=== PATIENT | female | born 1965 | race Hispanic/Latino ===

== ENCOUNTER 2016-09-18 14:40 | Emergency (ER) | payer MEDICAID ==
[2016-09-18 14:40] VITALS: BMI 29.9
[2016-09-18 14:57] VITALS: BP 143/90; PULSE 70; RESP 16; TEMP 98.1; O2SAT 99
[2016-09-18] MEDS ORDERED: Naproxen 500 MG TAB PO ONE ×2 (15:05→15:34)
--- NOTE | 2016-09-18 15:47 | ED PDOC ---
Lower Extremity Pain/Injury Time Seen by Provider: 09/18/16 14:59 Chief Complaint (Nursing): Lower Extremity Problem/Injury Chief Complaint (Provider): Left foot and ankle pain History Per: Patient History/Exam Limitations: no limitations Onset/Duration Of Symptoms: Hrs Current Symptoms Are (Timing): Still Present Additional Complaint(s): Patient is a 51 year old female presenting to the emergency department for left foot and ankle pain that started this morning after waking up. Reports pain is located on the top and bottom of the left foot. Denies numbness, tingling, trauma, and rash. PCP: Dr. Kendell Schwarz. Past Medical History Reviewed: Historical Data, Nursing Documentation, Vital Signs Vital Signs: Last Vital Signs Temp 98.1 F 09/18/16 14:54 Pulse 70 09/18/16 14:54 Resp 16 09/18/16 14:54 BP 143/90 09/18/16 14:54 Pulse Ox 99 09/18/16 14:54 - Medical History PMH: Anxiety, Asthma, Back Problems (chronic), Depression, HTN, Hypercholesterolemia, Hyperlipidemia Denies: Diabetes, Chronic Kidney Disease - Surgical History Surgical History: No Surg Hx - Family History Family History: States: Unknown Family Hx - Social History Current smoker - smoking cessation education provided: No Alcohol: None Drugs: Denies - Immunization History Hx Tetanus Toxoid Vaccination: No Hx Influenza Vaccination: No Hx Pneumococcal Vaccination: No - Home Medications Home Medications: Ambulatory Orders Medication Instructions Recorded ARIPiprazole [Abilify] 15 mg PO DAILY 03/06/16 Alendronate Sodium [Binosto] 1 tab PO DAILY 03/06/16 Ammonium Lactate 12% [Lac-Hydrin 1 applic TOP BID 03/06/16 12% Cream (140 g)] Cholecalciferol [Vitamin D 1000 IU] 1 cap PO DAILY 03/06/16 Clindamycin Phosphate 1 applic TOP BID 03/06/16 Clonazepam [Klonopin] 1 mg PO BID 03/06/16 Clotrimazole/Betamethasone 1 applic TOP BID 03/06/16 [Lotrisone] Cyclobenzaprine [Flexeril] 1 tab PO DAILY 03/06/16 DULoxetine [Cymbalta] 1 cap PO DAILY 03/06/16 Econazole Nitrate 1 applic TOP BID 03/06/16 Ferrous Sulfate [Feosol] 1 tab PO DAILY 03/06/16 Fluticasone Nasal [Flonase] 1 spray INH BID 03/06/16 Fluticasone/Salmeterol 500/50 1 puff INH BID 03/06/16 [Advair Diskus 500/50] Hydrocortisone [Proctosol-Hc] 1 applic TOP Q12 03/06/16 Ibuprofen [Motrin Tab] 1 tab PO Q8 PRN 03/06/16 Ketoconazole 2% Cr [Nizoral] 1 applic TOP BID 03/06/16 Lorcaserin HCl [Belviq] 1 tab PO DAILY 03/06/16 Mometasone Furoate 1 applic TOP BID 03/06/16 Multivitamin with Iron [Tab-A-Nell 1 tab PO DAILY 03/06/16 with Iron] Mupirocin 2% Ointment [Bactroban 1 applic TOP BID 03/06/16 Ointment] Neomycin/Polymyxin B for Irr 1 applic TOP BID 03/06/16 [Neomycin/Polymyxin B] Drums-3 Fatty Acids [Drums-3] 1 cap PO DAILY 03/06/16 Tobramycin/Dexamethasone [Tobradex 1 applic TOP BID 03/06/16 Eye Ointment] Trazodone HCl [Oleptro ER] 300 mg PO HS 03/06/16 Triamcinolone 0.1% [Triamcinolone 1 applic TOP BID 03/06/16 0.1% Cream] Triamterene/Hydrochlorothiazid 1 cap PO DAILY 03/06/16 [Triamterene-Hctz 37.5-25 mg Cp] metroNIDAZOLE 0.75% [Metrogel 1 applic TOP BID 03/06/16 Cream] Meloxicam [Mobic] 7.5 mg PO DAILY PRN #30 tab 09/18/16 - Allergies Allergies/Adverse Reactions: Allergies Allergy/AdvReac Type Severity Reaction Status Date / Time morphine Allergy RASH Verified 09/06/15 03:54 Penicillins Allergy RASH Verified 09/06/15 03:54 Sulfa (Sulfonamide Allergy RASH Verified 09/06/15 03:54 Antibiotics) Review of Systems ROS Statement: Except As Marked, All Systems Reviewed And Found Negative Constitutional: Negative for: Other (Trauma) Musculoskeletal: Positive for: Foot Pain (Left foot and ankle pain) Skin: Negative for: Rash Neurological: Negative for: Numbness, Other (Tingling) Physical Exam - Reviewed Nursing Documentation Reviewed: Yes Vital Signs Reviewed: Yes - Physical Exam Appears: Positive for: Well, Non-toxic, No Acute Distress Head Exam: Positive for: ATRAUMATIC, NORMAL INSPECTION, NORMOCEPHALIC Skin: Positive for: Normal Color, Warm, Dry Pulses-Dorsalis Pedis (L): 2+ Extremity: Positive for: Normal ROM (Active on left foot and ankle), Capillary Refill (less than 2 seconds capillary refill on the left foot). Negative for: Tenderness, Calf Tenderness (Bilateral), Deformity, Swelling, Other (No breaking skin integrity, warmth or erythema of left foot and ankle) Neurologic/Psych: Positive for: Alert, Oriented - ECG O2 Sat by Pulse Oximetry: 99 (RA) Pulse Ox Interpretation: Normal Medical Decision Making Medical Decision Making: Time: 1505 Initial Impression: Left foot and ankle pain Initial Plan: Naproxen 500 mg PO X-Ray Left Ankle X-Ray Left Foot Reevaluation 1540 Upon provider reevaluation patient is medically stable, and requires no further treatment in the ED at this time. Patient will be discharged with Rx for Meloxicam 7.5 mg. Counseling was provided and all questions were answered regarding diagnosis and need for follow up with Dr. Adams Arreola and visit to podiatry clinic. There is agreement to discharge plan. Return if symptoms persist or worsen. Clinical Impression: Heel spur Scribe Attestation: Documented by Swathi Galan, acting as a scribe for Jaya Farmer PA-C. Provider Scribe Attestation: All medical record entries made by the Scribe were at my direction and personally dictated by me. I have reviewed the chart and agree that the record accurately reflects my personal performance of the history, physical exam, medical decision making, and the department course for this patient. I have also personally directed, reviewed, and agree with the discharge instructions and disposition. Disposition - Clinical Impression Clinical Impression: Heel spur - Patient ED Disposition Is Patient to be Admitted: No Counseled Patient/Family Regarding: Studies Performed, Diagnosis, Need For Followup, Rx Given - Disposition Referrals: Podiatry Clinic [Outside] Adams Arreola MD [Staff Provider] - Disposition: Routine/Home Disposition Time: 15:40 Condition: STABLE Additional Instructions: Follow up with pediatric licensed practical nurse for further evaluation of foot pain. Prescriptions: Meloxicam [Mobic] 7.5 mg PO DAILY PRN #30 tab PRN Reason: pain Instructions: Heel Spur (ED) Print Language: ARABIC
--- NOTE | 2016-09-19 15:43 | RAD ---
PROCEDURE: Left Foot Radiographs. HISTORY: pain COMPARISON: None. FINDINGS: BONES: Normal. No fracture. JOINTS: Normal. SOFT TISSUES: Normal. OTHER FINDINGS: None. IMPRESSION: Normal left foot radiographs.
--- NOTE | 2016-09-19 15:51 | RAD ---
PROCEDURE: Left Ankle Radiographs. HISTORY: pain COMPARISON: None FINDINGS: BONES: Normal. No fracture. JOINTS: Normal. No osteoarthritis. Ankle mortise maintained. Talar dome intact SOFT TISSUES: Normal. OTHER FINDINGS: None. IMPRESSION: Normal left ankle radiographs.
== END 2016-09-18 16:05 | disposition home or self-care (01) ==
LOC: H.ER 14:40
DX: M77.30 Calcaneal spur, unspecified foot (principal)

== ENCOUNTER 2018-05-27 18:48 | Emergency (ER) | payer MEDICAID ==
[2018-05-27 18:48] VITALS: BMI 29.9
[2018-05-27 18:54] VITALS: RESP 20; O2SAT 98
[2018-05-27] MEDS ORDERED: Sodium Chloride 0.9% 1,000 ML IV STA (19:10)
--- NOTE | 2018-05-27 19:47 | ED PDOC ---
HPI: General Adult Time Seen by Provider: 05/27/18 18:59 Chief Complaint (Nursing): Chest Pain Chief Complaint (Provider): chest and abdominal pain History Per: Patient History/Exam Limitations: no limitations Onset/Duration Of Symptoms: Days (1) Current Symptoms Are (Timing): Still Present Severity: Moderate Additional Complaint(s): 53yo female c/o left lower chest and upper abdominal pain radiating to the back starting today, constant with exacerbations, denies nausea/vomiting/diarrhea, cough or fever. Denies prior history of similar pain. Prior records reviewed, had normal stress test several years ago per admission notes. Today denies SOB, dizziness, diaphoresis or orthopnea. Past Medical History Reviewed: Historical Data, Nursing Documentation, Vital Signs Vital Signs: Last Vital Signs Temp 97.6 F 05/27/18 18:52 Pulse 88 05/27/18 18:52 Resp 20 05/27/18 18:52 BP 167/80 H 05/27/18 18:52 Pulse Ox 98 05/27/18 18:52 - Medical History PMH: Anxiety, Asthma, Back Problems (chronic), Depression, HTN, Hypercholesterolemia, Hyperlipidemia Denies: Diabetes, Chronic Kidney Disease - Family History Family History: States: Unknown Family Hx - Living Arrangements Living Arrangements: With Family - Immunization History Hx Tetanus Toxoid Vaccination: No Hx Influenza Vaccination: No Hx Pneumococcal Vaccination: No - Home Medications Home Medications: Ambulatory Orders Medication Instructions Recorded ARIPiprazole [Abilify] 15 mg PO DAILY 03/06/16 Alendronate Sodium [Binosto] 1 tab PO DAILY 03/06/16 Ammonium Lactate 12% [Lac-Hydrin 1 applic TOP BID 03/06/16 12% Cream (140 g)] Cholecalciferol [Vitamin D 1000 IU] 1 cap PO DAILY 03/06/16 Clindamycin Phosphate 1 applic TOP BID 03/06/16 Clonazepam [Klonopin] 1 mg PO BID 03/06/16 Clotrimazole/Betamethasone 1 applic TOP BID 03/06/16 [Lotrisone] Cyclobenzaprine [Flexeril] 1 tab PO DAILY 03/06/16 DULoxetine [Cymbalta] 1 cap PO DAILY 03/06/16 Econazole Nitrate 1 applic TOP BID 03/06/16 Ferrous Sulfate [Feosol] 1 tab PO DAILY 03/06/16 Fluticasone Nasal [Flonase] 1 spray INH BID 03/06/16 Fluticasone/Salmeterol 500/50 1 puff INH BID 03/06/16 [Advair Diskus 500/50] Hydrocortisone [Proctosol-Hc] 1 applic TOP Q12 03/06/16 Ibuprofen [Motrin Tab] 1 tab PO Q8 PRN 03/06/16 Ketoconazole 2% Cr [Nizoral] 1 applic TOP BID 03/06/16 Lorcaserin HCl [Belviq] 1 tab PO DAILY 03/06/16 Mometasone Furoate 1 applic TOP BID 03/06/16 Multivitamin with Iron [Tab-A-Nell 1 tab PO DAILY 03/06/16 with Iron] Mupirocin 2% Ointment [Bactroban 1 applic TOP BID 03/06/16 Ointment] Neomycin/Polymyxin B for Irr 1 applic TOP BID 03/06/16 [Neomycin/Polymyxin B] Hildebran-3 Fatty Acids [Hildebran-3] 1 cap PO DAILY 03/06/16 Tobramycin/Dexamethasone [Tobradex 1 applic TOP BID 03/06/16 Eye Ointment] Trazodone HCl [Oleptro ER] 300 mg PO HS 03/06/16 Triamcinolone 0.1% [Triamcinolone 1 applic TOP BID 03/06/16 0.1% Cream] Triamterene/Hydrochlorothiazid 1 cap PO DAILY 03/06/16 [Triamterene-Hctz 37.5-25 mg Cp] metroNIDAZOLE 0.75% [Metrogel 1 applic TOP BID 03/06/16 Cream] Meloxicam [Mobic] 7.5 mg PO DAILY PRN #30 tab 09/18/16 - Allergies Allergies/Adverse Reactions: Allergies Allergy/AdvReac Type Severity Reaction Status Date / Time morphine Allergy RASH Verified 09/06/15 03:54 Penicillins Allergy RASH Verified 09/06/15 03:54 Sulfa (Sulfonamide Allergy RASH Verified 09/06/15 03:54 Antibiotics) Review of Systems ROS Statement: Except As Marked, All Systems Reviewed And Found Negative Constitutional: Negative for: Fever Cardiovascular: Positive for: Chest Pain Respiratory: Negative for: Shortness of Breath Gastrointestinal: Positive for: Abdominal Pain. Negative for: Vomiting, Diarrhea Genitourinary Female: Negative for: Dysuria Musculoskeletal: Positive for: Back Pain. Negative for: Neck Pain Skin: Negative for: Rash Neurological: Negative for: Weakness, Numbness Psych: Negative for: Anxiety, Depression Physical Exam - Reviewed Nursing Documentation Reviewed: Yes Vital Signs Reviewed: Yes - Physical Exam Appears: Positive for: Well, Non-toxic, No Acute Distress Head Exam: Positive for: ATRAUMATIC, NORMAL INSPECTION, NORMOCEPHALIC Skin: Positive for: Normal Color, Warm, DRY Eye Exam: Positive for: EOMI, Normal appearance, PERRL ENT: Positive for: Normal ENT Inspection Neck: Positive for: Normal, Painless ROM Cardiovascular/Chest: Positive for: Regular Rate, Rhythm. Negative for: Chest Non Tender (+chest wall tenderness) Respiratory: Positive for: CNT, Normal Breath Sounds Pulses-Radial (L): 3+/4+ Pulses-Radial (R): 3+/4+ Gastrointestinal/Abdominal: Positive for: Soft, Tenderness (LUQ), Guarding (LUQ) Back: Positive for: Normal Inspection Extremity: Positive for: Normal ROM Neurological/Psych: Positive for: Awake, Alert, Normal Tone - ECG ECG: Positive for: Interpreted By Me ECG Rhythm: Positive for: Normal QRS, Normal ST Segment, Sinus Rhythm, Nonspecific Changes Rate: 89 O2 Sat by Pulse Oximetry: 98 Pulse Ox Interpretation: Normal Medical Decision Making Medical Decision Making: workup for atypical chest and abdominal pain initiated check bloodwork, CTA C/A/P given pain w radiation to back r/o dissection/ AAA Disposition - Clinical Impression Clinical Impression: Acute chest pain, Abdominal pain - Patient ED Disposition Is Patient to be Admitted: Transfer of Care - Disposition Disposition: Transfer of Care Disposition Time: 19:55 Forms: [employer] (Paraguayan) Patient Signed Over To: Ana Paula Kim Handoff Comments: pending workup/dispo/diagnosis
[2018-05-27 19:58] LABS: BASO # 0.1 K/uL (0.0-0.2); BASO % 1.2 % (0.0-2.0); EOS # 0.2 K/uL (0.0-0.7); EOS % 4.8 % (0.0-4.0); INR 0.9; LYMPH # 1.8 K/uL (1.0-4.3); LYMPH % 39.7 % (20.0-40.0); MEAN CELL VOLUME 86.7 fl (81.0-99.0); MEAN CORPUSCULAR HEMOGLOBIN 28.1 pg (27.0-31.0); MEAN CORPUSCULAR HGB CONC 32.4 g/dL (33.0-37.0); MEAN PLATELET VOLUME 9.6 fl (7.2-11.7); MONO # 0.4 K/uL (0.0-0.8); MONO % 7.9 % (0.0-10.0); NEUT # 2.1 K/uL (1.8-7.0); NEUT % 46.4 % (50.0-75.0); RBC 4.62 Mil/uL (3.80-5.20); RED CELL DISTRIBUTION WIDTH 13.8 % (11.5-14.5); WHITE BLOOD COUNT 4.5 K/uL (4.8-10.8)
[2018-05-27 20:01] LABS: PARTIAL THROMBOPLASTIN TIME 29.3 Seconds (25.6-37.1)
[2018-05-27 20:03] LABS: ALB/GLOB RATIO 1.4 (1.0-2.1); ALBUMIN 4.4 g/dL (3.5-5.0); ALT/SGPT 40 U/L (9-52); AST/SGOT 29 U/L (14-36); BLOOD UREA NITROGEN 11 mg/dl (7-17); GFR NON-AFRICAN AMERICAN > 60
[2018-05-27 20:17] LABS: URINE CLARITY Clear (Clear)
[2018-05-27 20:18] LABS: SQUAMOUS EPITHIAL 1 /hpf (0-5)
[2018-05-27 20:19] LABS: URINE BILIRUBIN NEGATIVE (NEGATIVE); URINE BLOOD NEGATIVE (NEGATIVE); URINE COLOR LIGHT YELLOW (YELLOW); URINE GLUCOSE (UA) NEGATIVE (NEGATIVE)
[2018-05-27 20:20] LABS: URINE LEUKOCYTE ESTERASE NEGATIVE Leu/uL (NEGATIVE); URINE PROTEIN NEGATIVE mg/dL (<30 mg/dL); URINE UROBILINOGEN 0.2 E.U./dL (<1 E.U./dL)
[2018-05-27 20:22] LABS: PROTHROMBIN TIME 9.9 Seconds (9.8-13.1)
--- NOTE | 2018-05-27 20:40 | ED PDOC ---
- Laboratory Results Result Diagrams: 05/27/18 19:46 05/27/18 19:46 Lab Results: PT 9.9 Seconds (9.8-13.1) 05/27/18 19:46 INR 0.9 05/27/18 19:46 APTT 29.3 Seconds (25.6-37.1) 05/27/18 19:46 Troponin I < 0.0120 ng/mL (0.00-0.120) 05/27/18 19:46 Total Bilirubin 0.5 mg/dl (0.2-1.3) 05/27/18 19:46 AST 29 U/L (14-36) 05/27/18 19:46 ALT 40 U/L (9-52) 05/27/18 19:46 Alkaline Phosphatase 52 U/L (38-126) 05/27/18 19:46 Total Protein 7.6 G/DL (6.3-8.2) 05/27/18 19:46 Albumin 4.4 g/dL (3.5-5.0) 05/27/18 19:46 Globulin 3.1 gm/dL (2.2-3.9) 05/27/18 19:46 Albumin/Globulin Ratio 1.4 (1.0-2.1) 05/27/18 19:46 Urine Color Light yellow (YELLOW) 05/27/18 19:46 Urine Clarity Clear (Clear) 05/27/18 19:46 Urine pH 6.0 (4.7-8.0) 05/27/18 19:46 Ur Specific [place] 1.010 (1.005-1.035) 05/27/18 19:46 Urine Protein Negative mg/dL (<30 mg/dL) 05/27/18 19:46 Urine Glucose (UA) Negative mg/dL (NEGATIVE) 05/27/18 19:46 Urine Ketones Negative mg/dL (NEGATIVE) 05/27/18 19:46 Urine Blood Negative (NEGATIVE) 05/27/18 19:46 Urine Nitrate Negative (NEGATIVE) 05/27/18 19:46 Urine Bilirubin Negative (NEGATIVE) 05/27/18 19:46 Urine Urobilinogen 0.2 E.U./dL (<1 E.U./dL) 05/27/18 19:46 Ur Leukocyte Esterase Negative Jayshree/uL (NEGATIVE) 05/27/18 19:46 Urine RBC (Auto) 1 /hpf (0-3) 05/27/18 19:46 Ur Squamous Epith Cells 1 /hpf (0-5) 05/27/18 19:46 - ECG O2 Sat by Pulse Oximetry: 98 (RA) Pulse Ox Interpretation: Normal Medical Decision Making Medical Decision Makin:10 Patient signed out to this provider by Dr. Odonnell pending repeat troponin, CTA chest/abdomen and re-evaluation. Vitals are stable and repeat trop remained unremarkable. 21:53 CTA chest/abdomen FINDINGS: VASCULATURE: AORTA There is no evidence for aneurysm or dissection of the thoracic or abdominal aorta. Minor atherosclerotic plaquing noted. PULMONARY ARTERIES The examination is optimized for assessment of the aorta, rather than the pulmonary arteries. No evidence of central or segmental pulmonary embolism is seen. CHEST: Lungs: The lungs appear clear. No mass or consolidation. Pleural spaces: No pneumothorax evident. No pleural effusions. Heart: No cardiomegaly. No pericardial effusion. ABDOMEN: LIVER Unremarkable. No mass. GALLBLADDER AND BILE DUCTS No calcified stone. No ductal dilation. PANCREAS Unremarkable. No ductal dilation. SPLEEN Unremarkable. ADRENAL No mass. KIDNEYS AND URETERS The kidneys enhance symmetrically. No hydronephrosis. No solid mass. STOMACH AND BOWEL No obstruction. No bowel wall thickening. No CT evidence of acute diverticulitis. APPENDIX No CT evidence of appendicitis. PELVIS: URINARY BLADDER Unremarkable. REPRODUCTIVE Unremarkable as visualized. PERITONEUM No free fluid. No free air. LYMPH NODES No lymphadenopathy is evident. BONES No acute osseous abnormality. Disc interspace narrowing with associated vacuum disc phenomenon noted at L5-S1 compatible with degenerative disc disease. Very slight retrograde spondylolisthesis of L5 on S1. IMPRESSION: 1. There is no evidence for aneurysm or dissection of the thoracic or abdominal aorta. 2. No acute intrathoracic, intra-abdominal or pelvic abnormality. 3. Degenerative disc disease at L5-S1. 4. Slight retrograde spondylolisthesis of L5 on S1. 22:[address] with patient. trop neg X2. pt feels fine, no chest pain or sob. instructed to follow up as ouptp with Dr sierra. Scribe Attestation: Documented by Nazia Gallo, acting as a scribe for Ana Paula Kim MD Provider Scribe Attestation: All medical record entries made by the Scribe were at my direction and personally dictated by me. I have reviewed the chart and agree that the record accurately reflects my personal performance of the history, physical exam, medic al decision making, and the department course for this patient. I have also personally directed, reviewed, and agree with the discharge instructions and disposition Disposition Counseled Patient/Family Regarding: Studies Performed, Diagnosis, Need For Followup - Clinical Impression Clinical Impression: Acute chest pain - POA Present On Arrival: None - Disposition Disposition: Routine/Home Disposition Time: 23:12 Condition: IMPROVED Additional Instructions: follow up with Dr Sierra in 2 days return to the ED with any worsening or concerning symptoms Instructions: Chest Pain (DC) Forms: [employer] (Greenlandic)
[2018-05-27] MEDS ORDERED: Iodixanol 320 MG/ML 100 ML BOTTLE IV ONE (21:03)
[2018-05-28 06:41] VITALS: BP 127/63; PULSE 77; TEMP 98.2
--- NOTE | 2018-05-28 09:08 | CARD ---
APPROVED REPORT Date of service: 05/27/2018 EKG Measurement Heart [id number] <Conclusion> Normal sinus rhythm Left atrial enlargement Left ventricular hypertrophy with repolarization abnormality Abnormal ECG
--- NOTE | 2018-05-28 12:47 | CT ---
PROCEDURE: CT Angiography Chest, Abdomen and Pelvis with and without intravenous contrast HISTORY: L chest and upper abd pain radiating to back COMPARISON: None. TECHNIQUE: Contiguous axial images of the chest, abdomen and pelvis were obtained in the phase of aortic enhancement. A noncontrast enhanced CT of the chest was also obtained to evaluate for possible intramural thrombus. Coronal and sagittal reformats were generated. IV dose administered: Visipaque 320, 100 cc Radiation dose: Total exam DLP = 671.62 mGy-cm. This CT exam was performed using one or more of the following dose reduction techniques: Automated exposure control, adjustment of the mA and/or kV according to patient size, and/or use of iterative reconstruction technique. FINDINGS: CT ANGIOGRAPHY OF THE CHEST WITH & WITHOUT CONTRAST: AORTA (CHEST AND ABDOMEN): The thoracic and abdominal aorta are unremarkable, without aneurysm, dissection or rupture. No intramural thrombus identified in the thoracic aorta on the non-contrast ct of the chest. Body habitus as well as dense superior vena cava contrast both generate artifacts limiting the evaluation somewhat. The celiac axis, superior mesenteric artery, inferior mesenteric artery and the renal arteries are widely patent. The pelvic arteries are unremarkable. LUNGS: Clear. No nodule, mass or consolidation. MEDIASTINUM: Unremarkable. Normal caliber aorta and pulmonary arterial trunk. The study is performed as a CT angiogram of the chest which evaluates pulmonary artery system for pulmonary embolus with none clearly evident. Evaluation for dissection is not possible due to limited volume of iodinated contrast material within the thoracic aorta. Upper limits normal size ascending thoracic aorta which measures 3.9 cm. Normal pulmonary artery caliber. There is cardiomegaly and marked mural thickening of the left lateral ventricle. LYMPH NODES: Unremarkable. PLEURA: Unremarkable. No pneumothorax. No pleural fluid. BONES: Unremarkable. OTHER FINDINGS: None. CT ANGIOGRAPHY OF THE ABDOMEN AND PELVIS WITH CONTRAST: LIVER: Unremarkable. No gross lesion or ductal dilatation. GALLBLADDER AND BILE DUCTS: Unremarkable. PANCREAS: Unremarkable. No gross lesion or ductal dilatation. SPLEEN: Unremarkable. ADRENALS: Unremarkable. No mass. KIDNEYS AND URETERS: Unremarkable. No hydronephrosis. No solid mass. VASCULATURE: Nonaneurysmal abdominal aortic calcific atherosclerotic changes are identified. Timing of the bolus does not provide adequate evaluation of potential dissection through the abdominal aorta though none is suspected. No gross evidence of abdominal aortic dissection. STOMACH AND BOWEL: Moderate retention of retained fecal material throughout the large bowel. No obstruction. No gross mural thickening. No local bowel react to suggest enteritis or colitis grossly. APPENDIX: Normal appendix. PERITONEUM: Unremarkable. No free fluid. No free air. LYMPH NODES: Unremarkable. No enlarged lymph nodes. BLADDER: Unremarkable. REPRODUCTIVE: Prior hysterectomy apparent. BONES: Limited grade 1 spondylolisthesis of L4 anterior to L5 without fracture identified. OTHER FINDINGS: None. IMPRESSION: 1. No definitive pattern of pulmonary embolus. For evaluation of thoracic aorta. No gross abdominal aortic dissection. No evidence of thoracic or abdominal aortic definitive aneurysm though thoracic segment is upper limits of normal at the ascending segment alone. Bolus timing caused somewhat of a delay in imaging through the abdominal aorta limiting the evaluation somewhat. 2. Mild cardiomegaly. Mural thickening may indicate cardiomyopathy. It is possible CT imaging capture is left lower ventricle at end systole. Consider elective echocardiography. 3. No acute infiltrate, pleural or pericardial effusion or significant lymphadenopathy in the chest. 4. No definite acute abdomen or pelvic findings. 5. Prior hysterectomy apparent. 6. Limited grade 1 spondylolisthesis L4-5 without fracture apparent. Discordant with preliminary report regarding potential cardiomyopathy at the left lateral ventricle no mention in [place] [facility] evaluation 05/27/2018 9:53 p.m.. Otherwise concordant. Discussed with Dr. Odonnell with written down and read back verification 05/28/2018 12:30 p.m..
== END 2018-05-27 23:25 | disposition home or self-care (01) ==
LOC: H.ER 18:48
DX: R07.9 Chest pain, unspecified (principal); R10.9 Unspecified abdominal pain; Z90.710 Acquired absence of both cervix and uterus; Z86.59 Personal history of other mental and behavioral disorders
CPT/HCPCS: 71275; 74174; 80053; 81003; 81025; 84484; 85025; 85610; 85730; 93005; 96374; 99284; J1885; J7030; Q9967